=== PATIENT | female | born 1945 | race African-American/Black ===

== ENCOUNTER 2019-04-13 09:58 | Emergency (ER) | payer MEDICARE, MEDICAID ==
[~2019-04-13] VITALS: Ht 157.5 cm; Wt 48.0 kg
[2019-04-13 12:18] LABS: CLARITY URINE CLOUDY (CLEAR); COLOR URINE YELLOW (YELLOW); KETONES URINE NEGATIVE (NEGATIVE); LEUKOCYTE ESTERASE URINE 3+ (NEGATIVE); NITRITE URINE NEGATIVE (NEGATIVE); OCCULT BLOOD URINE TRACE (NEGATIVE); PROTEIN URINE NEGATIVE (NEGATIVE); SPECIFIC GRAVITY URINE 1.017 (1.005-1.030); UROBILINOGEN URINE 0.2 E.U./dL (0.2-1.0)
[2019-04-13 13:26] VITALS: BP 158/60
== END 2019-04-13 13:28 | disposition home or self-care (01) ==
LOC: ER 09:58
DX: N30.00 Acute cystitis without hematuria (principal); B37.41 Candidal cystitis and urethritis; E11.9 Type 2 diabetes mellitus without complications; I10 Essential (primary) hypertension
CPT/HCPCS: 99283

== ENCOUNTER 2021-03-27 10:07 | Emergency (ER) | payer MEDICARE, MEDICAID ==
[~2021-03-27] VITALS: Ht 157.5 cm; Wt 48.0 kg
[2021-03-27 10:17] VITALS: BP 153/60
[2021-03-27 10:40] LABS: CLARITY URINE CLEAR (CLEAR); COLOR URINE YELLOW (YELLOW); KETONES URINE 1+ (NEGATIVE); LEUKOCYTE ESTERASE URINE 1+ (NEGATIVE); NITRITE URINE NEGATIVE (NEGATIVE); OCCULT BLOOD URINE TRACE (NEGATIVE); PROTEIN URINE NEGATIVE (NEGATIVE); UROBILINOGEN URINE 0.2 E.U./dL (0.2-1.0)
[2021-03-27] MEDS ORDERED: CEFP200T13 MT (11:11)
[2021-03-27] MEDS ORDERED: FLUC200T51 MT (11:11)
== END 2021-03-27 11:17 | disposition home or self-care (01) ==
LOC: ER 10:07
DX: N39.0 Urinary tract infection, site not specified (principal); E11.65 Type 2 diabetes mellitus with hyperglycemia; I10 Essential (primary) hypertension
CPT/HCPCS: 81003; 82962; 99283

== ENCOUNTER 2022-07-17 12:08 | Inpatient (IN) | payer MEDICARE, MEDICAID ==
[~2022-07-17] VITALS: Ht 157.5 cm; Wt 46.3 kg
[~2022-07-17 12:08] MED LIST: ASPI-1406 PO; EMPA25TA PO; LIP40 PO; METF-874 MT; VALS1TAB79 PO
[2022-07-17 13:29] LABS: BASOPHILS % 0.5 % (0.0-2.0); EOSINOPHILS % 0.1 % (0.0-5.0); HEMATOCRIT. 44.4 % (36.0-48.0); LYMPHOCYTES % 20.5 % (20.0-50.0); MEAN CORPUSCULAR HEMOGLOBIN 26.2 pg (28.0-32.0); MONOCYTES % 5.3 % (2.0-8.0); NEUTROPHILS % 73.6 % (40.0-76.0); PLATELET 264 x1000/uL (130-400); RED BLOOD CELL COUNT 5.35 mill/uL (4.2-5.4); RED CELL DISTRIBUTION WIDTH 15.3 % (11.6-14.6)
[2022-07-17] MEDS ORDERED: SODIUM CHLORIDE 0.9% 1,000 ML IV ONE (13:30)
[2022-07-17 13:31] LABS: CHLORIDE 86 mEq/L (98-107)
[2022-07-17] MEDS ORDERED: INSULIN REGULAR (DRIP) 100 UNITS in SODIUM CHLORIDE 0.9% 100 ML IV ONE (14:00)
[2022-07-17] MEDS ORDERED: CLONIDINE 0.1MG TABLET PO PRN (15:00)
[2022-07-17] MEDS ORDERED: ONDANSETRON HCL 4MG/2ML INJ IV PRN (15:00)
[2022-07-17] MEDS: AMLODIPINE 10MG TABLET PO SCH (15:07)
[2022-07-17] MEDS: SODIUM CHLORIDE 0.9% 1,000 ML IV SCH ×3 (15:07→21:36)
[2022-07-17 15:19] LABS: BG BASE EXCESS -9.1 mmol/L (-2.0-2.0); BG CARBOXYHEMOGLOBIN 0.2 % (0.5-1.5); BG DEOXYHEMOGLOBIN 3.1 % (0.0-5.0); BG FRACTION INSPIRED OXYGEN 21; BG METHEMOGLOBIN 0.2 % (0.0-1.5); BG OXYGEN SATURATION 96.9 % (92.0-98.5); BG OXYHEMOGLOBIN 96.5 % (94.0-97.0); BG PCO2 28.1 mmHg (35.0-45.0); BG PH 7.345 (7.350-7.450); BG PO2 93.3 mmHg (75.0-100.0); BG SAMPLE SITE RIGHT BRACHIAL; BG TOTAL HEMOGLOBIN 13.9 g/dL (12.0-18.0); BG VENT MODE ROOM AIR
[2022-07-17] MEDS ORDERED: DEXTROSE 50% WATER 50ML SYRINGE IV PRN (16:45)
[2022-07-17] MEDS: BLOOD SUGAR DIAGNOSTIC STRIP TEST SCH ×2 (16:47→21:19)
[2022-07-17] MEDS: INSULIN GLARGINE 100 UNITS/ML SUBCUT SCH ×2 (16:56→21:37)
[2022-07-17] MEDS: INSULIN LISPRO 100 UNITS/ML SUBCUT SCH ×3 (16:58→21:00)
[2022-07-17 17:10] LABS: BETA HYDROXYBUTYRATE 5.3 mMol/L (0.0-0.3); PHOSPHORUS 3.8 mg/dL (2.5-4.9)
[2022-07-17 17:13] LABS: CLARITY URINE CLEAR (CLEAR); COLOR URINE YELLOW (YELLOW); KETONES URINE 3+ (NEGATIVE); LEUKOCYTE ESTERASE URINE NEGATIVE (NEGATIVE); NITRITE URINE NEGATIVE (NEGATIVE); OCCULT BLOOD URINE NEGATIVE (NEGATIVE); PROTEIN URINE NEGATIVE (NEGATIVE); SPECIFIC GRAVITY URINE 1.028 (1.005-1.030); UROBILINOGEN URINE 0.2 E.U./dL (0.2-1.0)
[2022-07-17 20:40] VITALS: BP 122/69
[2022-07-17] MEDS ORDERED: LISI2.5T47 PO (22:29)
[2022-07-17 23:41] LABS: CHLORIDE 105 mEq/L (98-107)
[2022-07-18] VITALS: BP 97/51
[2022-07-18] MEDS: SODIUM CHLORIDE 0.9% 1,000 ML IV SCH ×2 (03:00→06:21)
[2022-07-18 04:00] VITALS: BP 104/68
[2022-07-18] MEDS: BLOOD SUGAR DIAGNOSTIC STRIP TEST SCH ×4 (06:34→21:13)
[2022-07-18 08:00] VITALS: BP 115/62
[2022-07-18] MEDS: INSULIN LISPRO 100 UNITS/ML SUBCUT SCH ×4 (08:51→21:12)
[2022-07-18] MEDS: AMLODIPINE 10MG TABLET PO SCH (08:51)
[2022-07-18] MEDS: PANTOPRAZOLE SODIUM 40 MG/VIAL IV SCH (08:51)
[2022-07-18] MEDS: INSULIN GLARGINE 100 UNITS/ML SUBCUT SCH ×2 (09:59→21:13)
[2022-07-18 10:00] LABS: BASOPHILS % 0.4 % (0.0-2.0); EOSINOPHILS % 0.5 % (0.0-5.0); HEMATOCRIT. 35.4 % (36.0-48.0); HEMOGLOBIN. 11.6 g/dL (12.0-16.0); MEAN CORPUSCULAR HEMOGLOBIN 26.7 pg (28.0-32.0); MEAN CORPUSCULAR VOLUME 81.6 fL (81.0-99.0); MEAN PLATELET VOLUME 8.5 fl (7.4-10.4); MONOCYTES % 8.4 % (2.0-8.0); NEUTROPHILS % 60.7 % (40.0-76.0); PLATELET 197 x1000/uL (130-400); RED BLOOD CELL COUNT 4.34 mill/uL (4.2-5.4)
[2022-07-18 10:40] LABS: CHLORIDE 110 mEq/L (98-107)
[2022-07-18 12:00] VITALS: BP 93/47
[2022-07-18] MEDS ORDERED: POTASSIUM CHLORIDE 20MEQ TABLET SR PO NR (12:45)
[2022-07-18 12:49] LABS: CHLORIDE 108 mEq/L (98-107)
[2022-07-18 16:00] VITALS: BP 100/58
[2022-07-18] MEDS: ACETAMINOPHEN 325MG TABLET PO PRN ×2 (17:30→21:15)
[2022-07-18 20:00] VITALS: BP 96/54
[2022-07-18] MEDS ORDERED: INSU100I28 SQ (20:41)
[2022-07-19] VITALS: BP 96/48
[2022-07-19 04:00] VITALS: BP 117/65
[2022-07-19] MEDS: BLOOD SUGAR DIAGNOSTIC STRIP TEST SCH ×3 (06:29→17:55)
[2022-07-19] MEDS: INSULIN LISPRO 100 UNITS/ML SUBCUT SCH ×3 (07:50→18:00)
[2022-07-19 08:00] VITALS: BP 133/109
[2022-07-19] MEDS: INSULIN GLARGINE 100 UNITS/ML SUBCUT SCH (09:19)
[2022-07-19] MEDS: PANTOPRAZOLE SODIUM 40 MG/VIAL IV SCH (09:20)
[2022-07-19 12:00] VITALS: BP 132/84
[2022-07-19 16:00] VITALS: BP 145/81
[2022-07-19 18:14] VITALS: BP 145/81
[2022-07-20] MEDS ORDERED: FAMOTIDINE 20MG TABLET PO SCH (09:00)
== END 2022-07-19 19:45 | disposition home health service (06) | DRG 638 ==
LOC: ER 13:35 → 6WST 13:54 → EDBEDREQ 13:58 → EDBEDREQSVC 13:58 → EDBEDREQTM 13:58 → EDBEDREQ 14:02 → CANRESERV 15:40 → ENRESERV 15:40 → EDBEDREQSVC 17:17 → ENRESERV 19:36 → 6WST 21:28
PROVIDERS: ADMIT Family Medicine Adult Medicine; ATTEND Family Medicine Adult Medicine
DX: E11.00 Type 2 diabetes mellitus with hyperosmolarity without nonketotic hyperglycemic-hyperosmolar coma (NKHHC) (principal); E87.1 Hypo-osmolality and hyponatremia; I73.89 Other specified peripheral vascular diseases; I16.0 Hypertensive urgency; E87.8 Other disorders of electrolyte and fluid balance, not elsewhere classified; I10 Essential (primary) hypertension; J44.9 Chronic obstructive pulmonary disease, unspecified; F03.90 Unspecified dementia, unspecified severity, without behavioral disturbance, psychotic disturbance, mood disturbance, and anxiety; Z79.899 Other long term (current) drug therapy; Z82.49 Family history of ischemic heart disease and other diseases of the circulatory system; Z83.3 Family history of diabetes mellitus; Z87.440 Personal history of urinary (tract) infections
CPT/HCPCS: 36415; 36600; 71045; 80048; 80053; 81003; 82010; 82375; 82805; 82962; 83036; 83605; 83735; 83880; 84100; 84484; 85025; 93005; 99291; C9113; J1815; J7030; J7050